=== PATIENT | male | born 1970 | race Caucasian/White ===

== ENCOUNTER 2018-05-30 08:17 | Observation (INO) | payer MEDICAID ==
[~2018-05-30 08:17] MED LIST: ALTEPLASE 100 MG INJ
[2018-05-30 08:32] LABS: ADD MAN DIFF? NO
[2018-05-30 08:33] LABS: WHITE BLOOD COUNT 10.6 10^3/ul (4.8-10.8)
[2018-05-30 08:33] LABS: BASOPHILS % 0.4 % (0.0-2.0); EOSINOPHILS # 0.2 10^3/ul (0.0-0.5); HEMATOCRIT 45.2 % (42.0-52.0); LYMPHOCYTES # 4.6 10^3/ul (0.8-2.9); LYMPHOCYTES % 43.4 % (15.0-51.0); MEAN CORPUSCULAR HEMOGLOBIN 29.8 pg (29.0-33.0); MEAN CORPUSCULAR HGB CONC 33.2 g/dl (32.0-37.0); MEAN CORPUSCULAR VOLUME 89.7 fl (82.0-101.0); MEAN PLATELET VOLUME 10.3 fl (7.4-10.4); MONOCYTE # 0.7 10^3/ul (0.3-0.9); MONOCYTES % 6.8 % (0.0-11.0); NEUTROPHILS % 47.1 % (39.0-77.0); PLATELET COUNT 366 10^3/UL (140-415); RED BLOOD COUNT 5.04 10^6/ul (4.70-6.10); RED CELL DISTRIBUTION WIDTH 13.1 % (11.5-14.5)
[2018-05-30] MEDS ORDERED: IODIXANOL LOCM 100 ML BTL (08:42)
[2018-05-30] MEDS ORDERED: SOD CHLORIDE 0.9% 100 ML (08:42)
[2018-05-30 08:51] LABS: HEMOGLOBIN A1C 7.1 % (0-5.9)
[2018-05-30 08:51] LABS: ANION GAP 11 (5-13); BLOOD UREA NITROGEN 15 mg/dl (7-20); CALCIUM 9.8 mg/dl (8.4-10.2); CARBON DIOXIDE 27 mmol/L (21-31); CHLORIDE 103 mmol/L (97-110); CHOL/HDL RATIO 5.5 RATIO; CHOLESTEROL 215 mg/dl (100-200); CREATINE KINASE 45 IU/L (23-200); Estimated GFR > 60 mL/min (>60); GLUCOSE 202 mg/dl (70-220); HDL CHOLESTEROL 39 mg/dl (27-67); LDL CHOLESTEROL,CALCULATED 133 mg/dl; POTASSIUM 3.9 mmol/L (3.5-5.1); SODIUM 141 mmol/L (135-144); TRIGLYCERIDES 214 mg/dl (0-149)
[2018-05-30 08:52] LABS: INR 0.83; PROTIME 11.5 Sec (11.9-14.9); PT RATIO 0.9
[2018-05-30 08:53] LABS: ETHANOL < 10.0 mg/dl (0-0); PARTIAL THROMBOPLASTIN TIME 22.6 Sec (23.0-35.0)
[2018-05-30] MEDS: ASPIRIN 325 MG TAB PO (08:59)
[2018-05-30 09:03] LABS: CK INDEX 1.3; TROPONIN-I < 0.012 ng/ml (0.000-0.120)
[2018-05-30] MEDS ORDERED: LABETALOL HCL 20MG INJ (12:26)
== END 2018-05-30 15:16 | disposition short-term general hospital (02) ==
LOC: TEL 09:23 → E/R 15:19
DX: I63.9 Cerebral infarction, unspecified (principal); E11.9 Type 2 diabetes mellitus without complications; I10 Essential (primary) hypertension; E78.5 Hyperlipidemia, unspecified
CPT/HCPCS: 36415; 70450; 70496; 70498; 71045; 80048; 80061; 80307; 82550; 82553; 82962; 83036; 84484; 85025; 85610; 85730; 93005; 93306; 99291-25; G0378